=== PATIENT | female | born 1985 | race African-American/Black ===

== ENCOUNTER 2024-04-25 11:53 | Outpatient (CLI) | payer OTHER | END 2024-04-25 11:54 | disposition home or self-care (01) | LOC: PRENATAL 11:53 | PROVIDERS: ATTEND Obstetrics & Gynecology Maternal & Fetal Medicine | DX: O26.843 Uterine size-date discrepancy, third trimester (principal); O36.8130 Decreased fetal movements, third trimester, not applicable or unspecified; O09.513 Supervision of elderly primigravida, third trimester; O99.213 Obesity complicating pregnancy, third trimester; Z3A.28 28 weeks gestation of pregnancy ==

== ENCOUNTER 2024-06-01 09:08 | Outpatient (CLI) | payer OTHER | END 2024-06-01 09:09 | disposition home or self-care (01) | LOC: PRENATAL 09:08 | PROVIDERS: ATTEND Obstetrics & Gynecology Maternal & Fetal Medicine | DX: O26.849 Uterine size-date discrepancy, unspecified trimester (principal); O36.8199 Decreased fetal movements, unspecified trimester, other fetus; O09.519 Supervision of elderly primigravida, unspecified trimester; O99.210 Obesity complicating pregnancy, unspecified trimester; Z3A.34 34 weeks gestation of pregnancy ==